=== PATIENT | female | born 1955 | race Caucasian/White ===

== ENCOUNTER 2018-01-15 07:51 | Observation (INO) | payer BC ==
[~2018-01-15] VITALS: Ht 162.6 cm; Wt 83.0 kg
[~2018-01-15 07:51] MED LIST: ASPIRIN325 MG PO; Aspirin E.C. PO; CYTOMEL25 MCG PO; DOXYCYCLINE HY100 M3 PO; EFFIENT10 MG PO; Effient PO; LISINOPRIL10 MG PO; LO-DOSE ASPIRIN81 M2 PO; LORTAB 5-325 M1 EACH PO; Lipitor PO; Lopressor PO; MEDROL DOSEPAK4 MG PO; METOPROLOL SUCC25 MG PO; NAPROXEN500 MG PO; NOHOMEMEDS; NORCO 5/3251 TABLET PO; OMEPRAZOLE40 M1 PO; PERCOCET 5/31 TABLET PO; PROTONIX40 MG PO; Pulmicort 90 microgr IH; ROSUVASTATIN CA10 MG PO; TIZANIDINE HCL2 M1 PO; ZANTAC150 MG PO; ZOFRAN4 MG PO; Zestril,Prinivil PO
[2018-01-15 08:27] LABS: HEMATOCRIT 42.3 % (36.0-46.0); MCH 30.7 PG (29.0-34.0); MCHC 33.1 G/DL (30.0-36.0); MCV 92.8 FL (83-99); PLATELET COUNT 257 K/uL (156-360); RBC DIS.WIDTH-CV 12.8 % (11.8-14.6); RBC DIS.WIDTH-SD 43.9 % (39-53); RED BLOOD COUNT 4.56 M/uL (3.80-5.20); WHITE BLOOD COUNT 6.5 K/uL (4.1-10.2)
[2018-01-15 08:35] LABS: CHLORIDE 109 mEq/L (99-109); POTASSIUM 4.4 mEq/L (3.7-5.4); SODIUM 141 mEq/L (136-147)
[2018-01-15 08:37] LABS: GLUCOSE 102 mg/dL (70-99)
[2018-01-15 08:41] LABS: CREATININE 0.8 mg/dL (0.6-1.3); GFR ESTIMATE (CALCULATED) > 59 mL/min/
[2018-01-15 08:42] LABS: UREA NITROGEN (BUN) 24 mg/dL (9-23)
[2018-01-15 08:48] LABS: TROP-I INTERPRETATION NEGATIVE; TROPONIN-I < 0.01 ng/mL (0.0-0.30)
[2018-01-15] MEDS ORDERED: CYANOCOBALAM1000 MCG PO (12:55)
[2018-01-15] MEDS ORDERED: COQ-10100 MG PO (12:56)
[2018-01-15 14:48] VITALS: BP 145/64
[2018-01-15 15:24] LABS: TROP-I INTERPRETATION NEGATIVE; TROPONIN-I < 0.01 ng/mL (0.0-0.30)
[2018-01-15 16:45] VITALS: BP 141/66
[2018-01-15 20:00] VITALS: BP 128/63
== END 2018-01-15 21:47 | disposition home or self-care (01) ==
LOC: EME 07:51 → EDOF 09:46 → ENRESERV 09:50 → 5WEST 14:30
PROVIDERS: Internal Medicine
DX: R07.9 Chest pain, unspecified (principal); R06.02 Shortness of breath; R42 Dizziness and giddiness; I25.10 Atherosclerotic heart disease of native coronary artery without angina pectoris; I25.2 Old myocardial infarction; Z95.5 Presence of coronary angioplasty implant and graft; I10 Essential (primary) hypertension; R00.2 Palpitations; E78.5 Hyperlipidemia, unspecified; J45.909 Unspecified asthma, uncomplicated; Z79.82 Long term (current) use of aspirin; Z88.1 Allergy status to other antibiotic agents
CPT/HCPCS: 71046; 80048; 84484; 85027; 93005; 99281; 99284; G0378